=== PATIENT | male | born 1975 | race African-American/Black ===

== ENCOUNTER 2020-03-29 08:11 | Emergency (ER) | payer OTHER ==
[~2020-03-29] VITALS: Ht 177.8 cm; Wt 77.0 kg
[2020-03-29] MEDS ORDERED: LIDOCAINE HCL 1% 20ML VIAL (Pyxis) INJ INFIL ONE (08:45)
[2020-03-29 09:49] VITALS: BP 114/71
== END 2020-03-29 09:50 | disposition home or self-care (01) ==
LOC: ER 08:29
DX: S01.81XA Laceration without foreign body of other part of head, initial encounter (principal); W22.8XXA Striking against or struck by other objects, initial encounter; Y93.89 Activity, other specified; Y92.89 Other specified places as the place of occurrence of the external cause; Y99.8 Other external cause status
CPT/HCPCS: 12013; 99282; J3490